=== PATIENT | female | born 1935 | race Caucasian/White ===

== ENCOUNTER → 2017-02-21 | Outpatient (CLI) | payer MEDICARE ==
[~2017-02-21] MED LIST: AMIT10TA PO; ASPI-496 PO; ATOR20TA PO; CALC-558 PO; CHOL100012 PO; CICL34.6 TD; CLON0.5T20 PO; DOXY100T PO; FLUT1BLS INH; FURO20TA3 PO; LEVO88TA4 PO; METH500T7 PO; POLY17PO5 PO; POTA20TA6 PO; PRAM1TAB PO; PRED5TAB PO; TRAM50TA2 PO; VIT1CAPS11 PO; VITA400C43 PO
== END | disposition home or self-care (01) ==
LOC: CFH 10:13
PROVIDERS: ATTEND Orthopaedic Surgery
DX: Z13.820 Encounter for screening for osteoporosis (principal); M85.88 Other specified disorders of bone density and structure, other site; Z78.0 Asymptomatic menopausal state
CPT/HCPCS: 77080

== ENCOUNTER 2017-04-02 02:50 | Emergency (ER) | payer MEDICARE ==
[~2017-04-02] VITALS: Ht 160 cm; Wt 78.0 kg
[2017-04-02] MEDS ORDERED: OXYMETAZOLINE NASAL SPRAY 0.05%, 15ML ONE (02:57)
[2017-04-02 03:07] VITALS: BP 151/77
== END 2017-04-02 05:10 | disposition home or self-care (01) ==
LOC: ED 03:06
DX: R04.0 Epistaxis (principal); I10 Essential (primary) hypertension; Z90.710 Acquired absence of both cervix and uterus
CPT/HCPCS: 99283

== ENCOUNTER 2017-04-04 05:27 | Emergency (ER) | payer MEDICARE ==
[~2017-04-04] VITALS: Ht 160 cm; Wt 65.0 kg
[2017-04-04] MEDS ORDERED: OXYMETAZOLINE NASAL SPRAY 0.05%, 15ML ONE (05:35)
[2017-04-04] MEDS ORDERED: OXYMETAZOLINE NASAL SPRAY 0.05%, 15ML NAS ONE (06:00)
[2017-04-04 06:07] LABS: BASOPHILS # (AUTO) 0.06 x10^3/uL (0-0.1); BASOPHILS % (AUTO) 1 % (0-1); EOSINOPHILS # (AUTO) 0.56 x10^3/uL (0-0.4); EOSINOPHILS % (AUTO) 10 % (1-7); LYMPHOCYTES # (AUTO) 1.13 x10^3/uL (1-3.4); LYMPHOCYTES % (AUTO) 20 % (22-44); MD NO; MEAN CORPUSCULAR HEMOGLOBIN 29.3 pg (27.0-34.8); MEAN CORPUSCULAR HGB CONC 32.8 g/dL (32.4-35.8); MEAN CORPUSCULAR VOLUME 89.3 fL (80-100); MEAN PLATELET VOLUME 7.2 fL (7.4-10.4); MONOCYTES # (AUTO) 0.54 x10^3/uL (0.2-0.8); MONOCYTES % (AUTO) 10 % (2-9); NEUTROPHILS # (AUTO) 3.25 x10^3/uL (1.8-6.8); NEUTROPHILS % (AUTO) 59 % (42-75); PLATELET COUNT 524 x10^3/uL (130-400); RED CELL DISTRIBUTION WIDTH 14.1 % (9.6-15.2)
[2017-04-04 06:17] LABS: ANION GAP 8 mmol/L (5-15); CALCIUM 8.4 mg/dL (8.5-10.1); CHLORIDE 108 mmol/L (98-107); CREATININE 0.68 mg/dL (0.55-1.02)
[2017-04-04 07:13] VITALS: BP 136/70
== END 2017-04-04 07:18 | disposition home or self-care (01) ==
LOC: ED 05:54
DX: R04.0 Epistaxis (principal); F17.200 Nicotine dependence, unspecified, uncomplicated; I10 Essential (primary) hypertension; J44.9 Chronic obstructive pulmonary disease, unspecified; E07.9 Disorder of thyroid, unspecified
CPT/HCPCS: 36415; 80048; 82040; 85025; 99284

== ENCOUNTER → 2017-08-19 | Outpatient (CLI) | payer MEDICARE | END | disposition home or self-care (01) | LOC: CVU 11:44 | PROVIDERS: ATTEND Surgery | DX: I08.3 Combined rheumatic disorders of mitral, aortic and tricuspid valves (principal); E78.5 Hyperlipidemia, unspecified; I70.213 Atherosclerosis of native arteries of extremities with intermittent claudication, bilateral legs; R60.0 Localized edema | CPT/HCPCS: 93306 ==

== ENCOUNTER 2017-11-22 09:37 | Emergency (ER) | payer MEDICARE ==
[~2017-11-22] VITALS: Ht 160 cm; Wt 76.0 kg
[2017-11-22] MEDS ORDERED: RALO60TA PO (10:08)
[2017-11-22] MEDS ORDERED: POTA20TA6 PO (10:08)
[2017-11-22] MEDS ORDERED: FURO20TA3 PO (10:08)
[2017-11-22] MEDS ORDERED: PRAM0.5T5 PO (10:08)
[2017-11-22] MEDS ORDERED: SULF1TAB24 PO (10:08)
[2017-11-22 10:49] VITALS: BP 145/68
== END 2017-11-22 11:47 | disposition home or self-care (01) ==
LOC: ED 11:40
DX: S70.02XA Contusion of left hip, initial encounter (principal); I10 Essential (primary) hypertension; J44.9 Chronic obstructive pulmonary disease, unspecified; F17.200 Nicotine dependence, unspecified, uncomplicated; W01.0XXA Fall on same level from slipping, tripping and stumbling without subsequent striking against object, initial encounter; Y93.01 Activity, walking, marching and hiking; Y92.098 Other place in other non-institutional residence as the place of occurrence of the external cause; Y99.8 Other external cause status
CPT/HCPCS: 72192; 99284

== ENCOUNTER → 2018-01-27 | Outpatient (CLI) | payer MEDICARE ==
[~2018-01-27] MED LIST changes: +PRAM0.5T5 PO; +RALO60TA PO; +SULF1TAB24 PO
== END | disposition home or self-care (01) ==
LOC: CFH 15:37
PROVIDERS: ATTEND Orthopaedic Surgery
DX: S72.034D Nondisplaced midcervical fracture of right femur, subsequent encounter for closed fracture with routine healing (principal); M16.12 Unilateral primary osteoarthritis, left hip; Z90.710 Acquired absence of both cervix and uterus; X58.XXXD Exposure to other specified factors, subsequent encounter
CPT/HCPCS: 72195

== ENCOUNTER → 2018-03-02 | Outpatient (CLI) | payer MEDICARE | END | disposition home or self-care (01) | LOC: RAD 13:21 | PROVIDERS: ATTEND Emergency Medicine | DX: R60.0 Localized edema (principal) | CPT/HCPCS: 93970 ==